=== PATIENT | female | born 1940 | race Caucasian/White ===

== ENCOUNTER → 2017-06-15 13:32 | Outpatient (CLI) | payer MEDICARE, SELFPAY ==
--- NOTE | 2017-06-15 13:37 | CT_ITS ---
STUDY: CT BRAIN WITHOUT CONTRAST REASON FOR EXAM: Female, 76 years old. Neuropathy, frequent falls RADIATION DOSAGE (If Supplied By Facility): CTDIvol = ( 44.66 ) mGy, DLP = ( 762.36 ) mGycm TECHNIQUE: Transaxial CT imaging of the brain was performed without administration of intravenous contrast material. Sagittal and coronal images are reformatted. Individualized dose optimization techniques were used for this CT. COMPARISON: None. FINDINGS: Normal soft tissue structures. Normal calvarium. Normal size ventricles and extra-axial spaces for the patient's age. Normal white matter tracts of the cerebral hemispheres. Normal basal ganglia and thalami. Normal brainstem. Normal cerebellum. There is no intracranial hemorrhage. There are no findings of an acute ischemic infarction. Normal visualized paranasal sinuses. CT/Brain/Head without Contrast IMPRESSION: Normal unenhanced CT scan of the brain. Electronically Signed: Kenroy Calabrese DO at 22:33 EDT , Service support ,
== END ==
PROVIDERS: Family Provider Family Medicine; PCP Family Medicine; Visit Provider Psychiatry & Neurology Neurology
DX: G62.9 Polyneuropathy, unspecified (principal); R29.6 Repeated falls
CPT/HCPCS: 70450

== ENCOUNTER 2017-09-13 13:30 | Outpatient (RCR) | payer MEDICARE, SELFPAY ==
--- NOTE | 2017-07-19 09:01 | HP.PTEVAL_ITS ---
Patient's Visit Information BROOKE CARRILLO is a 76 year old F referred to Physical Therapy by JACKELIN Johns with a diagnosis of L side pinched nerve back/shoulder/neck. Date of Evaluation: 07/19/17 Physical Therapist: Richard Corbett PT, - Visit Plan Frequency: 2x /Week Duration: 4 Weeks Plan: Focus core/hip strengthening and mobility program, nustep for endurance. Manual therapy as needed to improve L hip mobility. Modalities prn. Pt likely has both L hip OA component and spinal stenosis that are causing her symptoms. - Subjective Subjective: This 76 y/o female reports history of L LE pain since fall in November. She has not had a fall since. She mainly had foot pain after the fall but is now experiencing more L LE pain. She was told she had a pinched nerve in her low back. She reports symptoms across her low back and in the back of the hip. Pain will radiate down the anterior L LE and groin. She has started using a rollator since the fall and feels like her balance and strength are getting worse since. She reports swelling in B LEs and was tested negative for blood clots. She reports 12 lb recent weight gain, Dr. chandler per pt. Ag factors: walking, standing. Easing: sitting. 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 SOCIAL: - Pain low back Pain Intensity (Out of 10): 6 Pain Intensity Range: 9, 10 L anterior LE Pain Intensity (Out of 10): 6 Pain Intensity Range: 9, 10 - Objective OBSERVATION: B pitting edema, L>R. GAIT: Ambulating with rollator walker, decreased step length. ROM: Lumbar flexion 50%, extension 0%. R hip WFL. L hip flexion mod impairment, IR severe impairment, ER mod impairment. Painful at end ranges with all L hip movements. FLEXIBILITY: L>R hamstring inflexibility. BALANCE: Normal stance with EC'd: Moderate sway. Neuro: Dermatomes intact, myotomes intact, unable to elicit DTRs as it was difficult for pt to relax. MMT : quads/hams 4-/5 ,hip flexion 4-/5,ankle 4/5,hip abd 3+/5 - Special Tests R Hip Scour: Negative L Hip Scour: Positive - Goals Goal 1:: Pt will demonstrate gross L hip mobility with min impairment. Goal Time Frame: 4-6 Weeks Goal 2:: Pt will perform narrow PEDRO with minimal sway to demonstrate improved balance. 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 Goal 4:: Pt will be independent with HEP to sustain gains made in the clinic. Goal Time Frame: 4-6 Weeks Goal 5:: Pt will report 50% functional improvement. Goal Time Frame: 4-6 Weeks - Rehabilitation Potential Physical Therapy Diagnosis: Pt is 76 y/o female with referral for L side pinched nerve back/shoulder/neck. She reports fall in November 2016 when symptoms started. She has chief c/o LBP and L hip pain that radiates down to the anterior thigh and groin. She has severe loss of lumbar extension and grossly moderate loss of L hip mobility. These are consistent with degenerative changes in both the L hip and low back. She has activity limitations that include decreased standing/walking tolerance. This limits her participation in volunteering. The pt will benefit from skilled PT to address the above impairments to maximize functional potential. Rehabilitation Potential: Fair - Anticipated Interventions Patient/Client Instruction: Educate patient on: Condition, Plan of Care For the Purpose of:: To decrease pain, To increase ROM, To increase tolerance to activity/condition/position, To improve performance and independence with ADL 's, To improve ability of physical actions for home/community/work/leisure Therapeutic Exercise to Include: Strength training, Endurance training, Balance training, Body mechanics, Postural training, Flexibilty training, Gait and locomotor training, Passive ROM, Active ROM For the Purpose of:: To decrease pain, To increase ROM, To improve performance and independence with ADL's, To improve ability of physical actions for home/ community/work/leisure, To decrease soft tissue restriction, To increase flexibility/ROM, To improve endurance, To improve balance, To improve safety with gait, To improve health and function Manual Therapy Techniques to Include: Mobilization, Passive ROM For the Purpose of:: To decrease pain, To increase ROM, To improve muscle performance and motor function, To improve ability to perform ADL's, To improve performance and independence with ADL's, To improve ability of physical actions for home/community/work/leisure, To improve gait and locomotor functions, To decrease soft tissue restriction, To increase flexibility/ROM TENS: Yes IF ES: Yes Cryotherapy (ice pack, ice massage): Yes Thermo therapy (hot pack): Yes Ultrasound (thermal/non thermal): Yes For the Purpose of:: To decrease pain, To increase ROM, To improve muscle performance and motor function, To increase tolerance to activity/condition/ position, To improve ability of physical actions for home/community/work/leisure , To increase flexibility/ROM Thank you for the opportunity to evaluate your patient. For Medicare and Medicare HMO plans, please review the plan of care and approve it. It will need to be FAXED BACK to us at [phone] for Medicare purposes. Please let me know if there are questions or concerns regarding this plan of care. Physician Signature: Date:
--- NOTE | 2017-08-16 15:29 | HP.PTREVAL ---
Julee Palacios, [employer], It has been my pleasure to treat BROOKE CARRILLO over the last 9 visits for L side pinched nerve back/shoulder/neck. Please see the progress note below for an update on the physical therapy plan of care! Subjective: Pt reports that today she is experiencing L anterior groin/thigh pain. This has started yesterday and contiuned into today. She attributes this to being very busy and on her feet quite a bit over the weekend. She feels like she has made good improvement with therapy since the start. Pt states that her saughter said that this is the best she's seen her walk for a long time. Objective/Function: Pt reports 80% improvement since starting therapy. She has made 4/5 PT goals. She has resumed her volunteering and her balance is improving. She does have a moderate amount of hip mobility issues. Her gait independence is still limited as she is using a Rollator still but is starting to walk at home unassisted. She would benefit from contiuned therapy at a reduced frequency to perform higher level balance activities. Plan Plan: Contiune x1/week for 4 weeks to perform higher level balance exercises, hip ROM, and hip abd strength. Goals Goal 1:: Pt will demonstrate gross L hip mobility with min impairment. Goal Time Frame: 4-6 Weeks Goal Progress: Progressing Goal 2:: Pt will perform narrow PEDRO with minimal sway to demonstrate improved balance. 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 Goal Progress: Progressing Goal 4:: Pt will be independent with HEP to sustain gains made in the clinic. Goal Time Frame: 4-6 Weeks Goal Progress: Progressing Goal 5:: Pt will report 50% functional improvement. Goal Time Frame: 4-6 Weeks Goal Progress: Progressing Anticipated Interventions Patient/Client Instruction: Educate patient on: Condition, Plan of Care For the Purpose of:: To decrease pain, To increase ROM, To increase tolerance to activity/condition/position, To improve performance and independence with ADL's, To improve ability of physical actions for home/community/work/leisure Therapeutic Exercise to Include: Strength training, Endurance training, Balance training, Body mechanics, Postural training, Flexibilty training, Gait and locomotor training, Passive ROM, Active ROM For the Purpose of:: To decrease pain, To increase ROM, To improve performance and independence with ADL's, To improve ability of physical actions for home/community/work/leisure, To decrease soft tissue restriction, To increase flexibility/ROM, To improve endurance, To improve balance, To improve safety with gait, To improve health and function Manual Therapy Techniques to Include: Mobilization, Passive ROM For the Purpose of:: To decrease pain, To increase ROM, To improve muscle performance and motor function, To improve ability to perform ADL's, To improve performance and independence with ADL's, To improve ability of physical actions for home/community/work/leisure, To improve gait and locomotor functions, To decrease soft tissue restriction, To increase flexibility/ROM TENS: Yes IF ES: Yes Cryotherapy (ice pack, ice massage): Yes Thermo therapy (hot pack): Yes Ultrasound (thermal/non thermal): Yes For the Purpose of:: To decrease pain, To increase ROM, To improve muscle performance and motor function, To increase tolerance to activity/condition/position, To improve ability of physical actions for home/community/work/leisure, To increase flexibility/ROM Please do not hesitate to contact me at [phone] by phone or if you have questions or concerns regarding this new plan of care! Sincerely, Richard Corbett PT,
--- NOTE | 2017-09-13 13:56 | HP.PTDCSUM_ITS ---
HP - PT D/C Summary It has been my pleasure to treat BROOKE CARRILLO under orders from Julee Palacios NP- C, for the diagnosis of L side pinched nerve back/shoulder/neck for a total of 13 visit(s). Discharge Date: 09/13/17 Please see the following information for a summary of their discharge status. - Subjective Subjective: Doing alot better..No pain. Independant with all ADL'S - Pain low back Pain Intensity (Out of 10): 0 L anterior LE Pain Intensity (Out of 10): 0 - Overall Improvement % Improvement: 100 - Objective Objective/Function: POSTURE: mild foward posture. GAIT: normal cadance no device reciprocal pattermn. MMT: quads/hams /hip 4/5 ankle 4/5. BALANCE GOOD- - Goals Goal 1:: Pt will demonstrate gross L hip mobility with min impairment. Goal Progress: Goal Met Goal 2:: Pt will perform narrow PEDRO with minimal sway to demonstrate improved balance. 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 Goal Progress: Goal Met Goal 4:: Pt will be independent with HEP to sustain gains made in the clinic. Goal Progress: Goal Met Goal 5:: Pt will report 50% functional improvement. Goal Progress: Goal Met - Plan Plan: D/C TO HEP - D/C Information Discharge Comments: HEP If there are questions or concerns regarding this patient's physical therapy, please feel free to call me at [phone]. Thank you for the referral of this patient. Sincerely, Richard Corbett, PT,
== END 2017-09-13 19:00 | disposition home or self-care (01) ==
LOC: PT 13:30
PROVIDERS: Family Provider Family Medicine; PCP Family Medicine; Visit Provider Nurse Practitioner Acute Care
DX: M54.12 Radiculopathy, cervical region (principal); G62.9 Polyneuropathy, unspecified
CPT/HCPCS: 97110; 97116; 97162; 97530

== ENCOUNTER 2018-04-12 15:00 | Outpatient (RCR) | payer MEDICARE, SELFPAY ==
--- NOTE | 2018-02-17 13:04 | HP.PTEVAL_ITS ---
Patient's Visit Information BROOKE CARRILLO is a 77 year old F referred to Physical Therapy by JACKELIN Johns with a diagnosis of Tingling, pain and numbess. Date of Evaluation: 02/17/18 Physical Therapist: HELIO Tierney - Visit Plan Frequency: 2x /Week Duration: 4 Weeks Plan: 2X/ week for 4 weeks for centralization of symptoms, core strength, LE strength, gait training with HEP - Subjective Findings: Pt reports that she has a pinched nerve in her L leg and this is the second time around and was here in November 2016 and she did well for over a year and then she pinched it again. She said that she was doing something stupid like moving furniture and she let it go for a couple of months and the Neurologist confirmed that it was pinched. Last time she was here she did exericises and continued to do the exercises at home. It is the same feeling that she had as last time. Last time she did exercises in PT on the bike, on the // bar, hip abd. Her HEP was more kitchen sink exercises and hip abd etc. Current symptoms: Pain in L knee up to hip, buttock and L side of spine. She has some numbness and tingling in her foot and toes that come and goes. 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 She uses the rollator when she goes out for safety and does not use it in the house. She keeps it as a protective thing in the trunk of her car. In May they are going to do some type of diagnostic testing for nerve damage. She gets tommy horses in her L leg that started since this episode. Pt feels that her L knee will give out on her at times especially doing stairs. - Pain back pain Pain Intensity (Out of 10): 5 L leg pain Pain Intensity (Out of 10): 5 - Objective Gait: Pt walks with short strides and decreased stance time on the L leg,,,, hard for pt to bend the L knee as she feels that will give out on her. + SLR B but worse on the L and + SLUMP test on the L and some on the R but worse on the L. Prone lying: increase L leg pain and across the LB. Tight HS B. Obswervation: pt stands with a R lateral shift (away from the L ). Trunk AROM: flex 25%, ext not even to neutral, SB R 100%, SB L 25%. LE MMT:hip abd B 4-/5, hip flex R 4/5 and L 4-/5, R knee ext 4/5 and L 4-/5, R knee flex 4/5 and L 4- /5, bridges able to go 1/2 normal ROM. Patella DTR's R 2+ and L 2+ - Goals Goal 1:: I HEP Goal Time Frame: 4-6 Weeks Goal 2:: Be able to walk with normal gait pattern with increased stance time on the L and more of a upright trunk posture with decreased lateral shift Goal Time Frame: 4-6 Weeks Goal 3:: Increase L LE strength (LE MMT:hip abd B 4-/5, hip flex R 4/5 and L 4- /5, R knee ext 4/5 and L 4-/5, R knee flex 4/5 and L 4-/5, bridges able to go 1/2 normal ROM) Goal Time Frame: 4-6 Weeks Goal 4:: Decrease pain to 3/10 on daily basis Goal Time Frame: 4-6 Weeks - Rehabilitation Potential Rehabilitation Potential: Good - Anticipated Interventions Patient/Client Instruction: Educate patient on: Condition, Plan of Care For the Purpose of:: To decrease pain, To increase ROM, To improve nutrient delivery to tissue, To increase oxygenation perfusion, To improve muscle performance and motor function, To improve ability to perform ADL's, To increase tolerance to activity/condition/position, To improve performance and independence with ADL's, To improve gait and locomotor functions Therapeutic Exercise to Include: Strength training, Body mechanics, Postural training, Flexibilty training, Gait and locomotor training, Active ROM, Dynamic Lumbar Stabilization, [place] Exercises For the Purpose of:: To decrease pain, To increase ROM, To improve nutrient delivery to tissue, To improve muscle performance and motor function, To improve ability to perform ADL's, To improve performance and independence with ADL's, To decrease level of supervision to perform tasks, To improve gait and locomotor functions, To improve health of tissue, To increase flexibility/ROM Manual Therapy Techniques to Include: Massage For the Purpose of:: To improve nutrient delivery to tissue IF ES: Yes Thermo therapy (hot pack): Yes Ultrasound (thermal/non thermal): Yes For the Purpose of:: To decrease pain, To decrease swelling/inflammation, To increase ROM, To improve nutrient delivery to tissue, To improve muscle performance and motor function, To improve ability to perform ADL's, To improve performance and independence with ADL's Thank you for the opportunity to evaluate your patient. For Medicare and Medicare HMO plans, please review the plan of care and approve it. It will need to be FAXED BACK to us at [phone] for Medicare purposes. For Medicare only, by signing this I certify the plan of care. Please let me know if there are questions or concerns regarding this plan of care. Physician Signature: Date:
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
--- NOTE | 2018-04-12 15:29 | HP.PTDCSUM_ITS ---
HP - PT D/C Summary It has been my pleasure to treat BROOKE CARRILLO under orders from Julee Palacios, JACKELIN C, for the diagnosis of Tingling, pain and numbess for a total of 12 visit(s). Discharge Date: 04/12/18 Please see the following information for a summary of their discharge status. - Subjective Subjective: Pt feels that she is much better. She does use the rollator when she goes out due to ice etc. She does not use the rollator outside. Pt only has a little pain in the mornings when trying to get out of bed but it is short lived. - Pain back pain Pain Intensity (Out of 10): 1 L leg pain Pain Intensity (Out of 10): 0 - Overall Improvement % Improvement: 98 - Objective Objective/Function: LE MMT: hip flex B 4/5, Knee ext B 4/5, Knee flex B 4/5, B hip abd 4+/5, 3/4 rom bridge. GAIT: Walks with no trunk weight shift, small steps - Goals Goal 1:: I HEP Goal Progress: Goal Met Goal 2:: Be able to walk with normal gait pattern with increased stance time on the L and more of a upright trunk posture with decreased lateral shift Goal Progress: Goal Met Goal 3:: Increase L LE strength (LE MMT:hip abd B 4-/5, hip flex R 4/5 and L 4- /5, R knee ext 4/5 and L 4-/5, R knee flex 4/5 and L 4-/5, bridges able to go 1/2 normal ROM) Goal Progress: Goal Met Goal 4:: Decrease pain to 3/10 on daily basis Goal Progress: Goal Met - Plan Plan: DC PT to HEP - D/C Information Discharge Comments: DC PT If there are questions or concerns regarding this patient's physical therapy, please feel free to call me at [phone]. Thank you for the referral of this patient. Sincerely, Elda Juarez, MPT
== END 2018-04-12 18:15 | disposition home or self-care (01) ==
LOC: PT 15:00
PROVIDERS: Family Provider Family Medicine; PCP Family Medicine; Referring Provider Nurse Practitioner Acute Care; Visit Provider Nurse Practitioner Acute Care
DX: R20.2 Paresthesia of skin (principal); R52 Pain, unspecified; R20.0 Anesthesia of skin
CPT/HCPCS: 97110; 97161; 97530

== ENCOUNTER → 2018-05-10 07:50 | Outpatient (CLI) | payer MEDICARE, SELFPAY ==
--- NOTE | 2018-05-10 10:28 | NEURO_ITS ---
NCS and/or EMG Patient Report Ordering Doctor: Julee Palacios DATE OF SERVICE: 05/10/18 This is a left lower extremity EMG and nerve conduction study performed on this 77-year-old female with a history of diabetes and her most recent hemoglobins A1c 7.3. She fell proximally 1-1/2 years ago and experienced low back pain as w ell as left hip pain radiating down into her left medial thigh and previously into her left ankle but this has resolved and she experiences left hip pain and left medial thigh pain which does not radiate below the knee at this point. On examination she has decreased sensation in her feet to temperature, intact strength and 1+ reflexes with mute plantar responses. Left lower extremity sensory and motor nerve conduction studies performed demonstrating mild slowing of the motor responses from the left common peroneal motor nerve and the tibial nerve as well as diminished H reflex amplitudes from the bilateral tibial nerve, mild prolongation of tibial and common peroneal F waves and intact left sural sensory response. Left lower extremity needle electromyography was performed. Muscles evaluated included the extensor digitorum brevis, abductor halitosis, medial gastrocnemius, anterior tibialis, vastus medialis and vastus lateralis muscles. Distal muscles in the foot demonstrated a large motor units with early recruitment. These abnormalities resolved with more proximal muscles, which demonstrated normal amplitudes insertional activity and absence of pathologic spontaneous activity. Impression: This is an abnormal electrophysiologic study of the left lower extremity consistent with length dependent peripheral neuropathy. There is likely a superimposed mild sciatica which appears to be improving clinically.
== END ==
PROVIDERS: Family Provider Family Medicine; PCP Family Medicine; Referring Provider Nurse Practitioner Acute Care; Visit Provider Nurse Practitioner Acute Care
DX: R20.0 Anesthesia of skin (principal); R20.2 Paresthesia of skin; M79.605 Pain in left leg
CPT/HCPCS: 95886; 95909

== ENCOUNTER → 2018-07-14 12:22 | Outpatient (CLI) | payer MEDICARE, SELFPAY ==
--- NOTE | 2018-07-14 12:30 | RAD_ITS ---
STUDY: X-RAY - PELVIS AND LEFT HIP REASON FOR EXAM: Female, 77 years old. Pain. Fall. TECHNIQUE: 3 views of the pelvis and left hip. COMPARISON: None. FINDINGS: There is no evidence of fracture or dislocation in the pelvis or left hip. There are moderate to severe degenerative changes in the left hip. RAD/HIP, UNI W/ Pelvis 2-3 Views IMPRESSION: No fracture or dislocation in pelvis or left hip. Moderate to severe degenerative changes in the left hip. Electronically Signed: Skip Parks, at 13:01 EDT Tel , Service support ,
== END ==
PROVIDERS: Family Provider Family Medicine; PCP Family Medicine; Referring Provider Nurse Practitioner Family; Visit Provider Nurse Practitioner Family
DX: M25.552 Pain in left hip (principal)
CPT/HCPCS: 73502

== ENCOUNTER → 2020-09-12 15:22 | Outpatient (CLI) | payer MEDICARE, SELFPAY ==
[2020-09-12 17:25] LABS: BNP,B-Type NATRIURETIC PEPTIDE 149.2 pg/mL (0-100)
== END ==
PROVIDERS: PCP Family Medicine; Visit Provider Nurse Practitioner Primary Care
DX: R60.0 Localized edema (principal)
CPT/HCPCS: 36415; 83880

== ENCOUNTER 2020-09-15 07:39 | Observation (INO) | payer MEDICARE, SELFPAY ==
--- NOTE | 2020-09-08 16:23 | EKG12_ITS ---
Test Reason : Blood Pressure : / mmHG Vent. Rate : 078 BPM Atrial Rate : 078 BPM P-R Int : 192 ms QRS Dur : 070 ms QT Int : 370 ms P-R-T Axes : 080 -09 060 degrees QTc Int : 421 ms Normal sinus rhythm Low voltage QRS Borderline ECG Confirmed by DYLAN TREJO, OSVALDO ([id number]), newspaper or periodical editor NORBERT COY ([id number]) on 09/11/2020 1:35:12 PM Referred By: Jak Becerril Confirmed By:OSVALDO RICHARDSON MD
[2020-09-08 17:07] LABS: Hematocrit 34.5 % (37-47); Hemoglobin 11.2 g/dL (12.0-15.0); Mean Corp Hgb Conc 32.5 g/dL (32-36); Mean Corpuscular Hgb 32.7 pg (27.0-32.0); Mean Corpuscular Volume 100.6 fL (81-99); Mean Platelet Vol. 10.9 fl (6.2-12.0); Platelet Count 204 K/mm3 (150-450); RBC Distribution Width CV 12.2 % (11.6-14.6); RBC Distribution Width SD 44.8 fl (35.1-43.9); Red Blood Count 3.43 M/mm3 (4.2-5.4); White Blood Count 6.2 K/mm3 (4.4-11.0)
[2020-09-08 17:23] LABS: Anion Gap 5 (5-15); BUN 13 mg/dL (7-18); BUN/Creat Ratio 12.1 RATIO (10-20); Calcium,Total 9.5 mg/dL (8.5-10.1); Chloride 105 mmol/L (98-107); Creatinine, Serum 1.07 mg/dL (0.55-1.02); EST Glomerular Filtration Rate 53 mL/min (>60); Est Glom Filt Rate - Afr Amer 64 mL/min (>60); Glucose 145 mg/dL (74-106); Potassium 4.6 mmol/L (3.5-5.1); Sodium Level 140 mmol/L (136-145)
[2020-09-08 17:26] LABS: Hemoglobin A1c 6.3 % (3.8-5.6)
[2020-09-08 17:43] LABS: Magnesium 1.8 mg/dL (1.6-2.6); Thyroid Stim Hormone (TSH) 1.65 uIU/mL (0.358-3.74)
[2020-09-15] VITALS (13 sets, daily range): BP systolic 146–182; BP diastolic 55–74; PULSE 63–97; RESP 16–18; TEMP 36.1–37.1; O2SAT 99–100; BMI 23.1
[2020-09-15] MEDS: Acetaminophen 500 MG Tablet 1000 MG PO ×3 (06:30→22:07)
[2020-09-15] MEDS: Insulin Lispro 100 UNIT/ML INSULN.PEN SC (06:31)
[2020-09-15] MEDS: Lactated Ringers 1,000 ML 100 ML IV (06:32)
--- NOTE | 2020-09-15 07:30 | FEM_PTH ---
PATIENT: BROOKE CARRILLO LOC: MS3 U#:[id number] AGE/SX: 79/F [place] [facility] [place]: Dr. Jak Becerril DO : 1940 BED: 1 DIS: 09/18/2020 SPEC #: [id number] RECD: 09/15/20 11:34 STATUS: MAT REÁngela #: [id number] RAJAN: 09/15/20 07:[address]: Jak Becerril DEPT: SURGICAL PATHOLOGY RECD BY: Angie Madsen ENTERED: 09/15/20 13:49 SP TYPE: FEM HEAD OTHR DR: Dr. Skip Coreas MD Tissues: Femoral region, NOS Procedures: Decalcification bone/plaque Surgery Specimen Level IV HEADER OPERATION: ERAS, total hip replacement PRE-OP DIAGNOSIS: Osteoarthritis left hip TISSUE SUBMITTED: Bone and tissue left hip MICROSCOPIC DIAGNOSIS Bone and tissue left hip, total hip replacement/resection: Femoral head with degenerative osteoarthritic changes. Fragments of fibroadipose tissue, fibroconnective tissue and reactive synovial tissue. SJ:shiraz 09/18/2020 MICROSCOPIC DESCRIPTION Slides are reviewed. GROSS DESCRIPTION Received is one container labeled with the patient's name and designated bone and tissue of left hip. The specimen consists of a allen femoral head measuring 6 x 4.5 x 4.5 cm. The articular surface displays prominent osteophyte formation, eburnation and bone erosion. Also present free in the specimen container are multiple irregular fragments of gritty and fleshy tissue measuring in aggregate 5 x 1 x 1 cm. Coper Hand sections are submitted in two cassettes as follows: 1 - soft tissue, 2 - bone after decalcification. / AM:shiraz 09/15/20 TC:5 [facility]: [id number], [id number]
[2020-09-15] MEDS: Cefazolin 2 GM in 0.9% Normal Saline 100 ML IV (07:33)
--- NOTE | 2020-09-15 07:33 | RAD_ITS ---
STUDY: X-RAY - PELVIS AND LEFT HIP REASON FOR EXAM: Postoperative evaluation of left hip arthroplasty. TECHNIQUE: 2 views of the pelvis and hip. COMPARISON: Radiographs 07/14/2018. FINDINGS: There is postoperative gas in the soft tissues and overlying skin dione. Normal bilateral superior and inferior pubic rami. Normal pubic symphysis. Normal bilateral ischial tuberosities. There is a left hip arthroplasty without evidence of complication. RAD/Hip 1 view with Pelvis IMPRESSION: Uncomplicated left hip arthroplasty. Electronically Signed: Fred Phillip MD at 10:13 EDT Tel , Service support ,
[2020-09-15 08:25] LABS: Bedside Glucose 250 mg/dL (70-110)
[2020-09-15] MEDS: Lactated Ringers 1,000 ML 125 ML IV ×2 (08:45→15:17)
[2020-09-15 09:25] LABS: Bedside Glucose 132 mg/dL (70-110)
[2020-09-15] MEDS: Cefazolin 1 GM/50 ML BAG IV ×2 (15:17→23:14)
--- NOTE | 2020-09-15 15:53 | OP.PCM_ITS ---
Report of Operation Date of Procedure: 09/15/20 Pre-Operative Diagnosis: OA left hip Post-Operative Diagnosis: same Surgery/Procedure Performed:: Left THR Description of Surgical Findings:: Report of Operation Date of Procedure: 09/15/20 Pre-Operative Diagnosis: OA [left ] hip Post-Operative Diagnosis: same Surgery/Procedure Performed: [left ] THR numerical control drill press operator: Jaret Mckeon PA-C Type of Anesthesia: spinal Anesthesiologist: Luis E Galan M.D. Specimen's removed: bone Estimated Blood Loss (100 mL): Implants: Gilson Accolade 2 size 3 stem, +0 neck length, 48 mm Tritanium cup with MDM liner Surgical Indications: Patient has severe end-stage osteoarthritic changes in the [ left ] hip. They have failed conservative measures including activity modification, anti- inflammatories, use of assistive devices. This to the point where the pain affects their ability to enjoy life and complete activities of daily living without discomfort. Patient has elected to undergo the above procedure Procedure Description: The patient was greeted in the preoperative area the [ left ] hip was marked with surgical marker preoperative antibiotics administered. The patient was then taken to or suite in stable condition. Preoperative tranexamic acid was also utilized. Once the patient was placed in the supine position on the operating room table and once adequate anesthesia was obtained they were then placed in the lateral decubitus position with the surgical hip facing the field. All bony prominences were well-padded. A commercial hip position was utilized. The appropriate extremity was then prepped and draped in usual sterile fashion. Ioban was placed on the skin. Surgical timeout was performed and surgery was commenced. A standard posterior approach to the hip was then performed. Incision was planned and carried out with a #10 blade scalpel. Dissection was then carried length of the incision to the IT band which was split proximally and distally. A Charnley retractor was then placed for soft tissue retraction exposing the piriformis. A standard posterior capsulotomy was performed. Severe eburnation of bone was noted and periarticular osteophytes were identified consistent with severe end-stage osteoarthritis. A femoral neck osteotomy guide was used to erica the proximal femur. A femoral osteotomy was then created approximately 1 fingerbreadth above the lesser trochanter. This was measured and placed on the back table. Once this was complete acetabular retractors were placed anteriorly and posteriorly. Labrum was then removed from the acetabulum exposing the entire cup of the acetabulum. Sequential reaming was then commenced and the acetabulum was medialized and sequentially widened in order to accommodate appropriate size cup. The acetabular cup was then impacted into position to the appropriate depth referencing approximately [ 45 ] anteversion and [ 45 ]of inclination. Excellent purchase was obtained. An appropriate size MDM liner was then placed. Attention was then turned to the femoral preparation. The hip was placed in the 90/90 position and a lateralizing box osteotome was utilized. Femoral starting awl was used followed by sequential broaching to the appropriate size. Excellent purchase was obtained with the stem no stem subsidence and excellent rotational stability was confirmed. A calcar reamer was then used in the trial head neck was placed on the broach. The hip was then located and taken through full range of motion flexion internal and external rotation as well as extension. Excellent stability was noted no impingement was identified of the components and leg lengths appear to be appropriate. The hip was at this point dislocated and the trial femoral components were removed. The final femoral stem was then implanted and impacted to the appropriate depth. Again excellent purchase was obtained no stem subsidence or rotational instability was noted. The hip was once again trialed and confirmation of leg length and stability was performed. Soft tissue tension also appeared to be appropriate. At this point the hip was redislocated and the trunnion was cleaned and dried meticulously in the appropriate size MDM femoral head was placed on the clean dry trunnion using a 12/14 [place] taper. The hip was once again relocated and again taken through full range of motion. I did inject a cocktail of postoperative pain medication in the deep and superficial tissues. Copious irrigation was performed. Anatomic closure of the piriformis tendon was performed through drill holes in the greater trochanter. A #1 Vicryl 0 Vicryl was utilized in subcutaneous tissue and surgical dione were placed in the skin. A well-padded nonadherent dressing was applied. Patient was taken to PACU in stable condition. No complications were identified. Will follow standard postop protocol for total hip arthroplasty. My assistant controller played a vital role in the procedure beginning with positioning, holding retraction of soft tissues, positioning the leg to optimize visualization during the procedure and assisting with wound closure. Post-op Plan: DVT ppx; ASA 81 mg BID, thigh high compression stockings Follow up: in office in 2 weeks for wound check PT: to start POD #0 at hospital, outpatient PT should be arranged. Preoperative antibiotic: Ancef 2 grams IV Jak Becerril DO Surgeon: Jak Becerril numerical control drill press operator: Jraet Mckeon Type of Anesthesia: Spinal Anesthesiologist: Luis E Crowe Specimen's removed: bone Drains: none Estimated Blood Loss (mL): 100 cc Admit VTE Documentation VTE Mechan Device Prophylaxis: SCD's and Thigh High BALA Hose VTE Pharm Prophylaxis ordered?: Yes
[2020-09-15] MEDS: metFORMIN HCl 500 MG Tablet PO (17:19)
[2020-09-15] MEDS: Aspirin 81 MG TAB.CHEW PO (22:07)
[2020-09-15] MEDS: Senna/Docusate Sodium 1 Tablet 2 TABLET PO (22:07)
[2020-09-16 00:31] VITALS: BP 155/56; PULSE 71; RESP 16; TEMP 36.4; O2SAT 99
[2020-09-16 04:23] VITALS: BP 162/60; PULSE 62; RESP 16; TEMP 36.3; O2SAT 100
[2020-09-16] MEDS: Acetaminophen 500 MG Tablet 1000 MG PO ×3 (05:21→21:17)
[2020-09-16] MEDS: 0.9% NaCl Peripheral Flush Adult/Peds IV (05:22)
[2020-09-16] MEDS: Losartan Potassium 50 MG Tablet PO (05:22)
[2020-09-16 06:23] LABS: Mean Corp Hgb Conc 32.4 g/dL (32-36); Mean Corpuscular Hgb 32.3 pg (27.0-32.0); Mean Corpuscular Volume 99.7 fL (81-99); Mean Platelet Vol. 10.5 fl (6.2-12.0); Platelet Count 220 K/mm3 (150-450); Red Blood Count 3.41 M/mm3 (4.2-5.4); White Blood Count 12.7 K/mm3 (4.4-11.0)
[2020-09-16 06:50] LABS: Anion Gap 7 (5-15); BUN 13 mg/dL (7-18); Calcium,Total 9.1 mg/dL (8.5-10.1); Chloride 101 mmol/L (98-107); Creatinine, Serum 1.08 mg/dL (0.55-1.02); EST Glomerular Filtration Rate 52 mL/min (>60); Est Glom Filt Rate - Afr Amer 63 mL/min (>60); Estimated Creatinine Clearance 31.87 ml/min; Glucose 147 mg/dL (74-106); Potassium 4.1 mmol/L (3.5-5.1); Sodium Level 136 mmol/L (136-145)
--- NOTE | 2020-09-16 07:08 | PCM.PN.ORT ---
Subjective Subjective Patient sitting at bedside. Patient states pain is been very well managed. Patient denies chest pain, shortness of breath, calf pain, nausea vomiting. Patient states she was able to ambulate with minimal discomfort. Patient states she would like to have the opportunity to stay at [facility] for for rehab or possibly go to an [facility] for postop rehab. Objective Data Objective Data Vital Signs: Vital Signs Temp Pulse Resp BP Pulse Ox 97.4 F L 62 16 162/60 H 100 09/16/20 04:23 09/16/20 04:23 09/16/20 04:23 09/16/20 04:23 09/16/20 04:23 Oxygen Flow Rate (L/min) 6 Oxygen Delivery Method Room Air Weight: 55.5 kg Body Mass Index (BMI) 23.1 Intake & Output: Intake and Output for Last 24 Hours 09/14/20 09/15/20 09/16/20 23:59 23:59 23:59 Intake Total 3235.76 / 3635.76 675.5 / 675.5 Output Total 1100 / 1850 1300 / 1300 Balance 2135.76 / 1785.76 -624.5 / -624.5 Lab / Micro Data Result Diagrams: 09/16/20 06:14 09/16/20 06:14 Labs: Laboratory Results - last 24 hr 09/15/20 06:09: POC Glucose 250 H 09/15/20 09:21: POC Glucose 132 H 09/16/20 06:14: WBC 12.7 H, RBC 3.41 L, Hgb 11.0 L, Hct 34.0 L, MCV 99.7 H, MCH 32.3 H, MCHC 32.4, RDW Std Deviation 44.0 H, RDW Coeff of Sharon 12.0, Plt Count 220, MPV 10.5 09/16/20 06:14: Sodium 136, Potassium 4.1, Chloride 101, Carbon Dioxide 28.0, Anion Gap 7, BUN 13, Creatinine 1.08 H, Estim Creat Clear Calc 31.87, Est GFR (MDRD) Af Amer 63, Est GFR (MDRD) Non-Af 52 L, BUN/Creatinine Ratio 12.0, Glucose 147 H, Calcium 9.1 Micro: Microbiology 09/12/20 15:14 Interface Orders SARS-CoV-2 Antigen (Rapid) - Final 09/08/20 16:45 Swab (Method) Nasal Screen MRSA/MSSA - Final Radiography Diagnostic Testing: Radiology Impression Hip/Pelvis X-Ray 09/15/20 07:33 IMPRESSION: Uncomplicated left hip arthroplasty. Electronically Signed: Fred Phillip MD at 10:13 EDT Tel , Service support , Physical Exam Narrative The dressing was clean dry intact. Negative signs and symptoms of DVT. Vital signs labs were all reviewed noted in the medical record. Patient is in no respiratory distress speaking in full sentences. There is no calf tenderness. Neurovascular is otherwise intact. Const alert and oriented x3 Eyes PERRL Neuro CN's II-XII intact bilaterally Assessment & Plan Assessment/Plan (1) Status post total hip replacement, left: PLAN: 1. Continue all pain medications as prescribed. 2. Continue physical therapy, weight-bear as tolerated with walker. 3. Aspirin 81 mg 1 p.o. every 12 hours x30 days for postop DVT prophylaxis 4. Encourage incentive spirometry 5. Discharge home when cleared with insurance to ECF or rehab for postop total hip rehab.
[2020-09-16 08:18] VITALS: BP 194/72; PULSE 73; RESP 18; TEMP 36.7; O2SAT 97
[2020-09-16] MEDS: Aspirin 81 MG TAB.CHEW PO ×2 (08:31→21:17)
[2020-09-16] MEDS: Senna/Docusate Sodium 1 Tablet 2 TABLET PO ×2 (08:31→21:17)
[2020-09-16] MEDS: Cholecalciferol (VIT D3) 25 MCG TABLET (1,000 UNITS) PO (08:31)
[2020-09-16] MEDS: metFORMIN HCl 500 MG Tablet PO ×3 (08:31→17:01)
[2020-09-16] MEDS: Multivitamins,Therapeutic Tablet 1 TABLET PO (08:31)
--- NOTE | 2020-09-16 09:48 | CASEMGMT ---
RUPINDER DALE Assessment: Face to Face with pt for initial transition planning/care coordination assessment. RN SUYAPA introduced self and role at [facility], pt voices understanding and consents to assessment. Pt is A/O x4 and answers all questions appropriately at this time. Pt sitting up in chair in no distress. Pt states I already have my discharge plan figured out, but patient agreeable to the assessment. She states this was discussed with her daughter and Dereck Mckeon already. Care providers, pharmacy, and demographics verified/updated. Admitting Dx: L THR PCP:Joss Specialists:Jerrica, ortho; Rito Boateng medical lab scientist Preferred Pharmacy: [facility] Retail while inpatient Insurance: [employer] [facility] Prescription Benefit: yes LW/HPOA: Pt states she has a LW/DPOA and states her DPOA is her dtr Florencia Oglesby. She is aware that it is not on file at [facility] and she may bring in anytime to be scanned into the chart. LNOK: Florencia Oglesby, dtr Living Arrangements: Pt lives alone in a split level house with one step to enter. Pt states she was I in ADL's prior but she could hardly walk.Pt denies concerns at home. Transportation: Pt states she has not driven since she has had such a difficult time ambulating. She states her dtr transports her to medical appts. DME/HHC/SNF: Pt has a rollator, BSC, extended tub bench and FWW at home. Pt denies hx of HHC or SNF stays. Pt states she would like to go to [facility] Rehab or [facility] for recovery. Pt states no further concerns/needs. CM to follow. Advised pt to ask CM if any further question/concerns/needs arise, voices understanding. Pt Goal: [facility] Rehab or [facility] Plan: Notified KELSEA Lauren on pt request for placement.
--- NOTE | 2020-09-16 11:54 | CASEMGMT ---
SOCIAL WORK Referral Source: RN SUYAPA Reason for Consult: Discharge Planning-SNF Patient status post left total hip replacement. Patient requesting to complete rehab here at [facility]. Referral discussed with Danya. Per Danya, hip replacement is a non qualifier for rehab unit. Patient was informed and requests referral to TCU. Danya to initiate precert today through [employer]. Per Danya, normally takes a few days to obtain precert. Patient, family, and staff updated. Plan: TCU pending precert Mary Sorensen MSW, LETTER OF CREDIT DOCUMENT EXAMINER
[2020-09-16] MEDS: traMADol 50 MG Tablet PO (15:57)
[2020-09-16 16:07] VITALS: BP 160/50; PULSE 77; RESP 18; TEMP 36.8; O2SAT 100
[2020-09-16 21:12] VITALS: BP 138/62; PULSE 92; RESP 16; TEMP 37.2; O2SAT 96
[2020-09-17 02:51] VITALS: BP 121/52; PULSE 76; RESP 16; TEMP 36.4; O2SAT 96
[2020-09-17] MEDS: Acetaminophen 500 MG Tablet 1000 MG PO ×3 (05:32→21:16)
[2020-09-17] MEDS: Losartan Potassium 50 MG Tablet PO (05:32)
[2020-09-17 07:35] VITALS: BP 115/56; PULSE 80; RESP 18; TEMP 37.1; O2SAT 98
[2020-09-17] MEDS: metFORMIN HCl 500 MG Tablet PO ×3 (07:41→17:49)
[2020-09-17] MEDS: Multivitamins,Therapeutic Tablet 1 TABLET PO (07:41)
[2020-09-17 08:11] VITALS: O2SAT 97
--- NOTE | 2020-09-17 09:32 | CASEMGMT ---
RUPINDER CM in to discuss TOBIAS form with patient. RN CM explained TOBIAS form, patient voiced understanding. Pt signed form and filed in chart. Pt provided with a copy of signed TOBIAS form. Patient had no further questions or concerns at this time.
[2020-09-17] MEDS: Senna/Docusate Sodium 1 Tablet 2 TABLET PO ×2 (09:45→21:16)
[2020-09-17] MEDS: Cholecalciferol (VIT D3) 25 MCG TABLET (1,000 UNITS) PO (09:45)
[2020-09-17] MEDS: Aspirin 81 MG TAB.CHEW PO ×2 (09:46→21:16)
--- NOTE | 2020-09-17 11:37 | PN.ORTHO_ITS ---
Subjective Subjective Patient sitting at bedside with her family playing cards. Patient states pain is been very well managed. Patient has no complaints at this time. Denies chest pain, shortness of breath, calf pain, nausea vomiting. Patient is awaiting insurance approval for admit to [facility] TCU for her postop rehab. Objective Data Objective Data Vital Signs: Vital Signs Temp Pulse Resp BP Pulse Ox 98.7 F 80 18 115/56 L 97 09/17/20 07:35 09/17/20 07:35 09/17/20 07:35 09/17/20 07:35 09/17/20 08:11 Oxygen Flow Rate (L/min) 6 Oxygen Delivery Method Room Air Weight: 55.5 kg Body Mass Index (BMI) 23.1 Intake & Output: Intake and Output for Last 24 Hours 09/15/20 09/16/20 09/17/20 23:59 23:59 23:59 Intake Total 3235.76 / 3635.76 915.5 / 1215.5 300 / 300 Output Total 1100 / 1850 1800 / 1800 Balance 2135.76 / 1785.76 -884.5 / -584.5 300 / 300 Lab / Micro Data Result Diagrams: 09/16/20 06:14 09/16/20 06:14 Micro: Microbiology 09/12/20 15:14 Interface Orders SARS-CoV-2 Antigen (Rapid) - Final 09/08/20 16:45 Swab (Method) Nasal Screen MRSA/MSSA - Final Physical Exam Narrative Dressings clean dry intact. Vital signs and labs reviewed noted in the medical record. Patient is in no respiratory distress distress. Patient speaking full sentences. No signs and symptoms of DVT. Neurovascular is otherwise intact. Const alert and oriented x3 Neuro CN's II-XII intact bilaterally Psych affect normal Assessment & Plan Assessment/Plan (1) Status post total hip replacement, left: PLAN: 1. Continue all pain medications as prescribed 2. Continue physical therapy weight-bear as tolerated with walker 3. Aspirin 81 mg 1 p.o. every 12 hours x30 days for postop DVT prophylaxis 4. Encourage incentive spirometry 5. Discharge to TCU when insurance approval is been received.
--- NOTE | 2020-09-17 12:48 | CASEMGMT ---
SOCIAL WORK Informed by Danya with TCU patient has been denied by [employer]. Peer to peer can be completed: , pending auth #[id number]. Call to LESLEY Barnes to update. Dereck to call and complete peer to peer. Mary Sorensen, MEDICAL RECORDS ADMINISTRATOR, FLOOR WAXER
[2020-09-17 13:40] VITALS: BP 136/54; PULSE 75; RESP 18; TEMP 36.7; O2SAT 100
[2020-09-17] MEDS: traMADol 50 MG Tablet PO ×2 (13:43→20:00)
--- NOTE | 2020-09-17 14:12 | CASEMGMT ---
SOCIAL WORK LESLEY Mckeon completed peer to peer. Patient denied. Met with patient and family in room to discuss options. Plan for home with home health. Simona DALE. Mary Sorensen MSW, PRINTING GRAY CLOTH TENDER
--- NOTE | 2020-09-17 14:40 | CASEMGMT ---
Addendum entered by Simona Guzman 09/17/20 15:50: RUPINDER DALE back into pt room. Pt/family is aware that the cost for [facility] for a week self pay with therapy is $1855. Pt dtr states We will take it. Pt is agreeable. Pt and family with questions regarding transportation. Notified KELSEA Chun of pt decision. Original Note: RUPINDER DALE in to pt room to discuss options of C for therapy as pt was denied precertification to SNF. Pt with family members present who state pt cannot go home as she lives in a split level house. Provided pt with a list of C providers including quality and resource use data and consistent with the patient?s preferred geographic region, medical needs, and insurance network. Pt and family asked how much it would cost for a private pay stay at [facility]. Spoke with Adiel ENAMORADO who left a vm to find this information out. RUPINDER DALE back into pt room to make aware that this was being checked on.
--- NOTE | 2020-09-17 16:36 | CASEMGMT ---
SOCIAL WORK Met with patient and family in room. Patient wishes to privately pay to [facility]. Call to Candelaria at [facility]. Referral faxed at this time. Mary Sorensen, PIPE BOWL PAINT TRIMMER, HOME HEALTH CLINICAL LIAISON
[2020-09-17 17:51] VITALS: BP 156/65; PULSE 85; RESP 18; TEMP 37.1; O2SAT 98
--- OUTSIDE RECORDS SUMMARY | 2020-09-17 18:12 | XMS RPT_ITS | Continuity of Care Document ---
:1940 External Reference #:[id number] Author Name Prema BECERRIL D.O. 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 Problems Description No Information Available Social History Type Date Description Comments Tobacco Use Start: Unknown Never Smokeless Tobacco Never Used Smokeless Tobacco ETOH Use Denies use Recreational Drug Use Denies Use Tobacco Use Start: Unknown Patient has never smoked Enjoy Exercising Daily Allergies, Adverse Reactions, Alerts Active Allergies Reaction Severity Comments Date Levaquin 04/29/2020 Prednisone 04/29/2020 Medications Active Medications SIG Qnty Indications Ordering Date Provider Unknown Aspirin Adult Low one PO bid for 1 Dose post-operative 81mg Tablets DVT PPx DR Unknown Cefazolin Sodium 2 gm IV 1 pre-operatively 2GM/20ML Soln for Abx Prefill Syringe prophylaxis Unknown Nateglinide 1PO bid 0 120mg Tablets Unknown Naproxen 1 by mouth 0 250mg every day Tablets Unknown Tizanidine HCL 1 by mouth 0 2mg twice daily as Capsules needed for back pain Unknown Gabapentin 1 by mouth 0 300mg three times a day Capsules Unknown Naproxen 1 by mouth 0 500mg twice a day as Tablets needed with food Unknown Diazepam 1/2-1 Tablet 0 5mg prn Tablets Unknown Losartan Potassium 1 by mouth 0 every day 50mg Tablets Unknown Glucosamine 1 bid 0 Chondroitin Unknown Calcium Plus D 1 po qday 0 600mg Unknown Vitamin E 1 po qday 0 400Units Capsules Unknown Vitamin C 1 po qday 0 500mg Capsules 100caps Unknown Multivitamins 1 po qday 0 Caplets Unknown Aspirin 2 qday prn 0 Unknown Metformin 2 po bid 0 500mg Tablets History Medications 60tabs Jak S. 03/17/2006 - Relafen 2 PO Knapic, D.O. 04/26/2020 750mg qd Tablets Unknown - Benicar 1 po 04/26/2020 40mg qdAY Tablets Unknown - Coreg 1 PO 04/26/2020 6.25mg bid Tablets Unknown - Simvastatin 1/2 04/26/2020 40mg po qday Tablets Unknown - Cymbalta 1 po 04/26/2020 60mg qday Capsules Unknown - Gabapentin 09/02/2020 250mg/5ML Solution Vital Signs Date Vital Result Comment 09/02/2020 3:11pm 61 inches Height 5'1 Weight 128.00 lb Weight 58.061 kg BMI (Body Mass 24.2 kg/m2 Index) BP Systolic 132 mmHg BP Diastolic 68 mmHg Heart Rate 59 /min Respiratory Rate 20 /min Body Temperature 97.4 ?F Body Temperature 36.3 ?C Pain Level 5 08/26/2020 4:28pm BP 140 mmHg Systolic BP Diastolic 72 mmHg Body Temperature 97.6 ?F Body Temperature 36.4 ?C Pain Level 5 Results Test Acquired Date Facility Test Result H/L Range Note 09/16/2020 [facility] 12.7 K/mm3 High 4.4-11.[address] [place] [address] WBC Diff [phone] 3.41 M/mm3 Low 4.2-5.4 RBC 11.0 g/dL Low 12.0-15.0 HGB 34.0 Low 37-47 HCT 99.7 fL High 81-99 MCV 32.3 pg High 27.0-32.0 MCH 32.4 g/dL 32-36 MCHC 12.0 11.6-14.6 RDW CV 44.0 fl High 35.1-43.9 RDW SD 220 K/mm3 150-450 PLT 10.5 fl 6.2-12.0 MPV 09/16/2020 [facility] 147 mg/dL High 74-106 [address] [place] [address] Glu Profile. [phone] 13 mg/dL 7-18 BUN 1.08 mg/dL High 0.55-1.02 2 Creat,Serum 52 mL/min Low >60 3 Est GFR 63 mL/min >60 4 Est GFR - Aa 31.87 mL/min Ecrcl 12.0 RATIO 10-20 BUN/Cre 9.1 mg/dL 8.5-10.1 CA,Total Na 136 mmol/L 136-145 4.1 mmol/L 3.5-5.1 Potassium CL 101 mmol/L 98-107 28.0 mmol/L 21.0-32.0 Co2 7 5-15 Gap 09/15/2020 [facility] 132 mg/dL High 70-[address] [place] [address] Bedside test finding [phone] Glucose 09/15/2020 [facility] 250 mg/dL High 70-[address] [place] [address] Bedside test finding [phone] Glucose 09/12/2020 [facility] *Negative [address] result Sars-Cov-2 [place] [address] Covid 19 <SEE (Covid 19) [phone] Ag NOTE> RT-PCR 09/08/2020 [facility] 6.2 K/mm3 4.4-11.0 CBC No [address] [place] [address] WBC [phone] 3.43 M/mm3 Low 4.2-5.4 RBC 11.2 g/dL Low 12.0-15.0 HGB 34.5 Low 37-47 HCT 100.6 fL High 81-99 MCV 32.7 pg High 27.0-32.0 MCH 32.5 g/dL 32-36 MCHC 12.2 11.6-14.6 RDW CV 44.8 fl High 35.1-43.9 RDW SD 204 K/mm3 150-450 PLT 10.9 fl 6.2-12.0 MPV 09/08/2020 [facility] 145 mg/dL High 74-106 [address] [place] [address] Glu Profile. [phone] 13 mg/dL 7-18 BUN 1.07 mg/dL High 0.55-1.02 9 Creat,Serum 53 mL/min Low >60 10 Est GFR 64 mL/min >60 11 Est GFR - Aa 12.1 RATIO 10-20 BUN/Cre 9.5 mg/dL 8.5-10.1 CA,Total Na 140 mmol/L 136-145 4.6 mmol/L 3.5-5.1 Potassium CL 105 mmol/L 98-107 30.0 mmol/L 21.0-32.0 Co2 5 5-15 Gap 09/08/2020 [facility] 6.3 High 3.8-5.[address] [place] [address] Hemoglobin test finding [phone] A1c Reason for Exam: 13 MRSA/Said Nasal Screen <SEE NOTE> 09/08/2020 [facility] 1.8 1.6-2.[address] mg/[place] [address] Magnesium test finding [phone] 1.65 uIU/mL 0.358-3.74 15 Thyroid Stim Hormone (TSH) 1 Fasting Glucose result greater than or equal to 126 mg/dL suggests DIABETES MELLITUS per A.D.A. criteria. Please n ote revised GLUCOSE reference range effective 19 18. 2 The dez dity of the calculated GFR GFRAA in patients over 70 years has not been determined. Clinical correlation is becca hernandez. 3 Non-Afri can [place] GFR Calc 4 GFR Calc 5 MANAGEME NT OF PATIENT CARE PER NURSING PROTOCOL 6 MANAGEME NT OF PATIENT CARE PER NURSING PROTOCOL 7 *Negativ e results from patients with symptom onset beyondfive days should be treated as presumptive and confirmed by a molecu lar assay if clinically necessary. Negative results should n ot be used as the sole basis for treatment or for patient management. COVID 19 AG RAPID (RN COLLECT) *Positiv e results do not differentiate between SARS-CoV and SARS-CoV -2. If differentation of the specific SARS virus is desired an additional sample and an additional order is required . COVID 19 AG RAPID (RN COLLECT) * This t est has not been FDA cleared or approved; the test has been authorized by FDA under an Emergency Use Authoriz ation (EAU) for use by laboratories certified under CLIA ana t meet the requirements to perform moderate, high, or waive d complexity tests. COVID 19 AG RAPID (RN COLLECT) Normal R eference Range: Negative SARS-CoV -2 (COVID 19) Negative RAPID ME THOD Quidel Suzette Analyzer SHASTA, lateral flow immunofluorescent 8 Fasting Glucose result greater than or equal to 126 mg/dL suggests DIABETES MELLITUS per A.D.A. criteria. Please n ote revised GLUCOSE reference range effective 19 18. 9 The dez dity of the calculated GFR GFRAA in patients over 70 years has not been determined. Clinical correlation is becca royal 10 Non-Afri can [place] GFR Calc 11 GFR Calc 12 Normal < 5.7 % Prediabe tic 5.7 - 6.4 % Diabetic >or= 6.5 % Please n ote range changes. 13 Reason f or Exam: preop preop MRSA MRSA NegativeS. AUREUS S. aureus Negative 14 [facility] [address] [place], [place], [id number] Ordering Provider: Janet Ugalde Provider: Manager [employer], , Primary Care Provider: MELINDA Del Valle ed Provider: Yoni Bauman Provider Role: Copied 15 [facility] [address] [place], [place], [id number] Ordering Provider: Janet Ugalde Provider: Manager [employer], , Primary Care Provider: MELINDA Del Valle ed Provider: Yoni Bauman Provider Role: Copied Assessments Date Code Description Provider 09/15/2020 M16.12 Unilateral primary Laura Ray osteoarthritis, left hip 09/15/2020 M16.12 Unilateral primary Jak alegria, osteoarthritis, left hip D.O. Plan of Treatment 09/02/2020 - Laura RayM16.12 Unilateral primary osteoarthritis, left hipNew Therapy:Physical Therapy: Eval&Treat/Npmxewjsqd51/20/2021 - Jak Becerril D.O.M16.12 Unilateral primary osteoarthritis, left hipFollow up: follow up pre-opRecommendations:Patient chart reviewed and patient evaluated. Full clinical discussion had with patient about her condition. Radiographs shown and reviewed with patient from [facility] dated 04-16-20 andit shows severe osteoarthritis of the left hip with acetabular cyst formation. This is secondary tothe osteoarthritis that is present. Treatment options reviewed and discussed with the patient. She would benefit from a total hip arthroplasty. All surgical and nonsurgical options were discussed with the patient. We did review the potential risks, benefits, and complications of this procedure including but not limited to , infection, nerve, blood vessel, and tendon damage, persistent pain, numbness, tingling, and paresthesias, blood clots, pulmonary embolism, and the requirement for furthersurgery. The patient is in full understanding and would like to proceed with surgery. Return post op. We discussed the current risks associated with COVID 19. This does include the risk of exposure while in the hospital or outpatient facility. Patient was reassured local hospitals/ surgery centershave low infection rates and are taking all necessary precautions to avoid exposure to patients. Inaddition, we discussed strategies that can be used to help limit exposure including those that limitthe patient's time in the hospital. Also using strategies to limit the patient's need forcontinued inpatient services after being discharged from the hospital. Patient was notified that wewill need to comply with any screening or testing the hospital wishes to perform or that surgery may be delayed for any positive results. Patient displayed verbal understanding to all written and oral instructions at this time. Patient is agreeable to the current treatment plan at this time. All their questions were answered to his/her satisfaction and all of his/her concerns were addressed. Advised to call with any questions, concerns or increased pain.M71.352 Other bursal cyst, left hipR53.1 Gjenobzj91/23/2021 - Laura RayM16.12 Unilateral primary osteoarthritis, left hipFollow up:cancel appointment for elbow on prn R53.1 VdeuebqtK06.12 Unilateral primary osteoarthritis, left kneeM51.36 Other intervertebral disc degeneration, lumbar sczuxeR46.122 Post-traumatic osteoarthritis, left elbow Functional Status Functional Condition Comment Date Status Glasses Active Dentures Active Mental Status Description No Information Available
[2020-09-17 22:00] VITALS: BP 137/43; PULSE 84; RESP 18; TEMP 36.4; O2SAT 97
[2020-09-18 03:15] VITALS: BP 112/84; PULSE 84; RESP 18; TEMP 36.9; O2SAT 98
[2020-09-18] MEDS: Losartan Potassium 50 MG Tablet PO (06:21)
[2020-09-18] MEDS: Acetaminophen 500 MG Tablet 1000 MG PO (06:21)
[2020-09-18] MEDS: Multivitamins,Therapeutic Tablet 1 TABLET PO (07:40)
[2020-09-18] MEDS: metFORMIN HCl 500 MG Tablet PO (07:40)
--- NOTE | 2020-09-18 07:40 | PN.ORTHO_ITS ---
Subjective Subjective Patient sitting at bedside eating breakfast. Patient states pain is very well managed. Patient states she is ready for discharge to ECF. Patient understands she will have to pay for this out of her own pocket, as insurance company has denied her ECF care. Patient denies chest pain, shortness of breath, calf pain, nausea vomiting. Objective Data Objective Data Vital Signs: Vital Signs Temp Pulse Resp BP Pulse Ox 98.4 F 84 18 112/84 H 98 09/18/20 03:15 09/18/20 03:15 09/18/20 03:15 09/18/20 03:15 09/18/20 03:15 Oxygen Flow Rate (L/min) 6 Oxygen Delivery Method Room Air Weight: 55.5 kg Body Mass Index (BMI) 23.1 Intake & Output: Intake and Output for Last 24 Hours 09/16/20 09/17/20 09/18/20 23:59 23:59 23:59 Intake Total 915.5 / 1215.5 900 / 1050 350 / 350 Output Total 1800 / 1800 Balance -884.5 / -584.5 900 / 1050 350 / 350 Lab / Micro Data Result Diagrams: 09/16/20 06:14 09/16/20 06:14 Micro: Microbiology 09/12/20 15:14 Interface Orders SARS-CoV-2 Antigen (Rapid) - Final 09/08/20 16:45 Swab (Method) Nasal Screen MRSA/MSSA - Final Physical Exam Narrative Dressings clean dry intact. Negative signs or symptoms of DVT. Vital signs labs reviewed noted in the medical records. Patient is afebrile. Patient is in no respiratory distress, speaking in full sentences. Neurovascular she is othe rwise intact. Const oriented x3 Eyes PERRL Neuro CN's II-XII intact bilaterally Psych affect normal Assessment & Plan Assessment/Plan (1) Status post total hip replacement, left: PLAN: 1. Continue all pain medications as prescribed 2. Continue physical therapy at [facility], weight-bear as tolerated with walker 3. Aspirin 81 mg 1 p.o. every 12 hours x30 days for postop DVT prophylaxis 4. Encourage incentive spirometry 5. Discharge today to [facility] 6. Follow-up as scheduled, see pink sheet 7. Shower 09/19/2020 8. [place]alls out 09/26/2020
--- NOTE | 2020-09-18 07:44 | PCM.DC.SUM ---
Providers Date of Admission: 09/15/20 Primary Care Physician: Dr. Skip Coreas MD Reason For Visit: LT TOTAL HIP REPLACEMENT Diagnosis Discharge Diagnosis (1) Status post total hip replacement, left: Status: Acute Code(s): Z96.642 - Presence of left artificial hip joint Medications at Discharge Home Medications cholecalciferol (vitamin D3) [Vitamin D3] 25 mcg PO DAILY 09/04/20 losartan 50 mg PO DAILY 09/04/20 metformin 500 mg PO TID 09/04/20 multivitamin 1 cap PO DAILY 09/04/20 naproxen 250 mg PO BID 09/04/20 nateglinide 120 mg PO TID 09/04/20 omega 7-ydl-duh-fish oil [Fish Oil] 1 cap PO DAILY 09/04/20 red yeast rice 600 mg PO DAILY 09/04/20 tizanidine 2 mg PO Q8H PRN 09/04/20 Weight / BMI Weight Weight: 55.5 kg Body Mass Index (BMI) 23.1 ABG / Lab / Microbiology Data Result Diagrams: 09/16/20 06:14 09/16/20 06:14 Microbiology: Microbiology 09/12/20 15:14 Interface Orders SARS-CoV-2 Antigen (Rapid) - Final 09/08/20 16:45 Swab (Method) Nasal Screen MRSA/MSSA - Final Meaningful Use Info Meaningful Use Diagnoses (Choose all that apply): None applicable Discharge Plan Admission Admit Date/Time: 09/15/20 07:39 Primary Reason for Your Visit: Left total hip replacement Attending Provider: Jak Becerril Primary Care Provider: Skip Coreas Discharge Orders/Prescriptions Prescriptions: No Action losartan 50 mg Tablet 50 mg PO DAILY RF: 0 nateglinide 120 mg Tablet 120 mg PO TID RF: 0 metformin 500 mg Tablet 500 mg PO TID RF: 0 tizanidine 2 mg Tablet 2 mg PO Q8H PRN (Reason: Pain) RF: 0 naproxen 250 mg Tablet 250 mg PO BID RF: 0 multivitamin Capsule 1 cap PO DAILY RF: 0 cholecalciferol (vitamin D3) [Vitamin D3] 25 mcg (1,000 unit) Capsule 25 mcg PO DAILY RF: 0 red yeast rice 600 mg Capsule 600 mg PO DAILY RF: 0 omega 6-kay-bpr-fish oil [Fish Oil] 1,200 (144-216) mg Capsule 1 cap PO DAILY RF: 0 Referrals / Follow Up: Skip Coreas MD [Primary Care Provider] -
--- NOTE | 2020-09-18 08:47 | CASEMGMT ---
KELSEA called Candelaria at [facility], message left. KELSEA will continue to follow, waiting for return call. SEAN Vicente
[2020-09-18] MEDS: Aspirin 81 MG TAB.CHEW PO (08:56)
[2020-09-18] MEDS: Cholecalciferol (VIT D3) 25 MCG TABLET (1,000 UNITS) PO (08:56)
[2020-09-18] MEDS: Senna/Docusate Sodium 1 Tablet 2 TABLET PO (08:56)
[2020-09-18 09:15] VITALS: BP 120/71; PULSE 87; RESP 18; TEMP 36.9; O2SAT 100
--- NOTE | 2020-09-18 09:57 | PHA.DC.MR ---
Pharmacy Service has performed discharge medication reconciliation for this patient upon transfer to [facility]. Home Medications cholecalciferol (vitamin D3) [Vitamin D3] 25 mcg PO DAILY 09/04/20 losartan 50 mg PO DAILY 09/04/20 metformin 500 mg PO TID 09/04/20 multivitamin 1 cap PO DAILY 09/04/20 naproxen 250 mg PO BID 09/04/20 nateglinide 120 mg PO TID 09/04/20 omega 1-pul-ykg-fish oil [Fish Oil] 1 cap PO DAILY 09/04/20 red yeast rice 600 mg PO DAILY 09/04/20 tizanidine 2 mg PO Q8H PRN 09/04/20 acetaminophen 1,000 mg PO Q8 30 Days #180 tab 09/18/20 oxycodone 2.5 mg PO Q4H PRN PRN 7 Days #84 tab 09/18/20 The patient's discharge medication list was reviewed for discrepancies and discrepancies were resolved.
--- NOTE | 2020-09-18 11:20 | CASEMGMT ---
Addendum entered by Carmen Eldridge 09/18/20 12:00: Candelaria spoke w/the grandson, they can take pt any time. SW spoke w/pt and grandson in the room to inquire about vaccination, pt has not been vaccinated for COVID. SW let Candelaria know this, she states that pt can still have compassionate care visits, however not for 5 days as they had a staff member test positive for COVID, so there is no visitation for 5 days. SW explained this to pt and grandson. SW also spoke w/grandson regarding medication, he wants the scripts sent directly to [facility]. SW then called Dereck Mike regarding pt's prescriptions, as they were sent to our retail pharmacy, he states will drop off a new script at the care home later this afternoon. SW let Candelaria at [facility] know this. SW faxed all discharge instructions, med list, negative COVID and PAS/RR with results to [facility]. KELSEA called [facility], set up an ambulette for 12:20pm. KELSEA let [facility] at [facility], pt, and her RN know time of pickup. Pt will call her grandson to let him know, he is meeting pt at the care home w/her checkbook. SW did also let pt know that she will get a bill for the transportation. Pt states understanding. Plan: [facility] today, pickup at 12:20pm. No further needs anticipated. SEAN Vicente Original Note: SW spoke w/Candelaria at [facility], they can take pt once they have spoken w/family regarding self pay. KELSEA called grandson Terry Rivera ([phone]) to let him know Candelaria from [facility] will be calling him. He states understanding. SW called Candelaria back to give her Terry's number. KELSEA also inquired if family can picker feeder the medications from the pharmacy to bring them in. They can, or the scripts can be sent to the care home directly. SW will speak w/pt's grandson in regard to this. KELSEA will continue to follow, [facility] is to call this SW back once they are ready to take pt. SEAN Vicente
[2020-09-18 12:08] VITALS: BP 120/71; PULSE 87; RESP 18; TEMP 36.4; O2SAT 100
--- NOTE | 2020-09-18 12:31 | CASEMGMT ---
Pt is concerned about going to SNF due to case of COVID. We spoke about pt's options, as pt does think she can manage at home. We talked through all options, pt is going [facility] with the understanding that when she gets there, she has the right to leave. Pt states understanding, plans to go [facility] this afternoon. SEAN Vicente
--- NOTE | 2020-09-18 12:41 | NURSING ---
Report called to [facility]. Transport here patients walker and belonging sent with transport.
--- NOTE | 2020-09-19 16:09 | CASEMGMT ---
Social Work Note SW received message from pt's daughter Florencia requesting call back. ([phone]). SW placed a call to Florencia. Florencia had multiple questions regarding pt's care at [facility] and how pt can discharge from [facility]. SW informed Florencia that the physician at [facility] will have to discharge pt when she is medically ready for discharge and encouraged Florencia to speak with the SW at [facility] regarding discharge plans. Florencia states she had concerns with pt's care. SW encouraged Florencia to speak to [facility] about concerns and also [facility]. SW explained the [facility] will be able to arrange HHC, Outpatient Therapy, needs at discharge and that is who will need to arrange those things as pt has been discharged from [facility]. Florencia states understanding, thanked this SW for the call back. Florencia denied additional needs or concerns. Iman Goodrich COMMUNITY WORKER, JAVASCRIPT FRONT END DEVELOPER
== END 2020-09-18 12:42 | disposition skilled nursing facility (03) ==
LOC: MS3 09-16 10:31 → SDC 09-16 14:50
PROVIDERS: Anesthesiology; Admitting Provider Orthopaedic Surgery; PCP Family Medicine; Referring Provider Orthopaedic Surgery; Visit Provider Orthopaedic Surgery
PROC: 0SRB0JZ Replacement of Left Hip Joint with Synthetic Substitute, Open Approach (ICD-10-PCS; CPT 27130; principal; 2020-09-15 07:05)
DX: M16.12 Unilateral primary osteoarthritis, left hip (principal); I50.9 Heart failure, unspecified; E11.9 Type 2 diabetes mellitus without complications; M71.352 Other bursal cyst, left hip; R53.1 Weakness; Z79.899 Other long term (current) drug therapy; Z79.82 Long term (current) use of aspirin; Z79.84 Long term (current) use of oral hypoglycemic drugs
CPT/HCPCS: 27130; 36415; 73501; 73502; 80048; 82962; 83036; 83735; 84443; 85027; 87081; 87426; 88305; 88307; 88311; 93005; 96361; 96365; 96366; 97110; 97116; 97162; 97166; 97530; 97535; 99218; C1776; C9803; J7120; A4216; G0378; J2405; J3475